=== PATIENT | female | born 1965 | race Caucasian/White ===

== ENCOUNTER → 2016-08-15 | Outpatient (CLI) | payer BC | LOC: FIMAGING 09:58 | PROVIDERS: ATTEND Physician Assistant | DX: R10.11 Right upper quadrant pain (principal) | CPT/HCPCS: A9537 ==

== ENCOUNTER → 2017-02-05 | Outpatient (CLI) | payer BC | LOC: FIMAGING 08:31 | PROVIDERS: ATTEND Surgery | DX: Z12.31 Encounter for screening mammogram for malignant neoplasm of breast (principal) | CPT/HCPCS: G0202 ==

== ENCOUNTER 2017-02-11 11:38 | Emergency (ER) | payer BC ==
[2017-02-11 11:46] VITALS: RESP 16; TEMP 98.8
--- NOTE | 2017-02-11 12:01 | CPEKG ---
Heart Rate: 64 RR Interval: 938 P-R Interval: 168 QRSD Interval: 92 QT Interval: 416 QTC Interval: 430 P Atkinson: 43 QRS Atkinson: 51 T Wave Atkinson: 39 EKG Severity - NORMAL ECG - EKG Impression: SINUS RHYTHM EKG Impression: NS IVCD Electronically Signed By: Yoselin Thibodeaux 13-Feb-2017 21:23:37
[2017-02-11 12:24] LABS: % IMMATURE GRANULYOCYTES 0.2 % (0.0-1.1); ABSOLUTE IMMATURE GRANULOCYTES 0.01 10^3/uL (0.00-0.10); ADD DIFF? NO; ADD MORPH? NO; ADD SCAN? NO; ATYPICAL LYMPHOCYTE FLAG 20 (0-99); FRAGMENT RBC FLAG 0 (0-99); HEMATOCRIT 41.4 % (38.0-47.0); HEMOGLOBIN 13.7 g/dL (12.6-16.3); LEFT SHIFT FLG 0 (0-99); LIPEMIA HEMOLYSIS FLAG 80 (0-99); MEAN CELL HEMOGLOBIN CONCENTR. 33.1 g/dL (32.4-36.7); MEAN CELL VOLUME 93.7 fL (81.5-99.8); MEAN PLATELET VOLUME 10.2 fL (8.7-11.7); PLATELET CLUMPS FLAG 10 (0-99); PLATELET COUNT 223 10^3/uL (150-400); RED BLOOD CELL COUNT 4.42 10^6/uL (4.18-5.33); RED CELL DISTRIBUTION WIDTH 13.4 % (11.5-15.2)
--- NOTE | 2017-02-11 12:32 | EDPHY ---
H & P Stated Complaint: L chest pain x 3 days Time Seen by Provider: 02/11/17 12:24 HPI/ROS: CHIEF COMPLAINT: Chest pain. HISTORY OF PRESENT ILLNESS: This patient is a 51 year old female complaining of left-sided chest pain onset three days ago. Her discomfort has been constant since onset, and is occasionally worse with inspiration or with left arm raise. It is increased when she is supine. She endorses left-sided muscle aches in her neck and shoulder. She initially suspected it may be related to heartburn. Ramone, five days ago, she felt she was catching a cold and had a sore throat and productive cough with yellow mucous. She has a history of anxiety and panic attacks, but her current symptoms do not feel similar to her those associated with her anxiety. She denies fever, urinary complaints, nausea, vomiting, or diarrhea. No history of hypertension, diabetes, or hyperlipidemia. REVIEW OF SYSTEMS: A 10 point review of systems was performed and is negative with the exception of the elements mentioned in the history of present illness. - Personal History LMP (Females 10-55): Now Current Tetanus Diphtheria and Acellular Pertussis (TDAP): Yes - Medical/Surgical History PMH: Anxiety, hypothyroid, sleep apnea. Other PMH: thyroid. sleep apnea. anxiety - Social History Smoking Status: Current every day smoker Additional Social History: Quit smoking 15 years ago, started again 6 months ago. Rare alcohol use. No illicit drug use. . Lives in [place]. - Physical Exam Exam: General Appearance: Alert, no distress Eyes: Pupils equal and round, no conjunctival pallor or injection ENT, Mouth: Mucous membranes moist Neck: Normal inspection Respiratory: Left-sided chest wall tenderness. Lungs are clear to auscultation Cardiovascular: Regular rate and rhythm Gastrointestinal: Abdomen is soft and non- tender Neurological: A&O, nonfocal, normal gait Skin: Warm and dry, no rash Extremities: Nontender, no pedal edema Psychiatric: Mood and affect normal Constitutional: Initial Vital Signs Temperature (C) 37.1 C 02/11/17 11:40 Heart Rate 71 02/11/17 11:40 Respiratory Rate 16 02/11/17 11:40 Blood Pressure 113/63 02/11/17 11:40 O2 Sat (%) 97 02/11/17 11:40 O2 Delivery Mode Room Air Allergies/Adverse Reactions: No Known Allergies Allergy (Verified 02/11/17 11:41) Home Medications: Medication Instructions Recorded Levothyroxine [Synthroid 125 mcg 125 mcg PO DAILY06 09/22/12 (RX)] celeXA 10 MG 02/11/17 Medical Decision Making - Diagnostics EKG Interpretation: EKG interpreted by me reveals normal sinus rhythm, rate 64, no ST/T changes. Interpretation: normal EKG Imaging Results: Imaging Impressions Chest X-Ray 02/11/17 12:01 Impression: Mild peribronchial thickening that could be related to bronchitis or minimal fluid overload. Imaging: I viewed and interpreted images myself ED Course/Re-evaluation: This patient presents with atypical chest pain. After careful consideration and evaluation, I find no evidence of acute coronary syndrome. The patient has no risk factors for coronary disease, normal EKG and normal studies. In addition, I feel that I can safely exclude pulmonary embolism, with normal vital signs, normal oxygen saturation and normal D-dimer. In addition there is no evidence of pneumothorax, pneumonia, aortic dissection. Most likely musculoskeletal etiology for pain, especially given upper respiratory tract infection. - Data Points Laboratory Results: Laboratory Results 02/11/17 12:11 02/11/17 12:11 02/11/17 02/11/17 02/11/17 12:11 12:11 12:11 WBC 6.01 10^3/uL 10^3/uL (3.80-9.50) RBC 4.42 10^6/uL 10^6/uL (4.18-5.33) Hgb 13.7 g/dL g/dL (12.6-16.3) Hct 41.4 % % (38.0-47.0) MCV 93.7 fL fL (81.5-99.8) MCH 31.0 pg pg (27.9-34.1) MCHC 33.1 g/dL g/dL (32.4-36.7) RDW 13.4 % % (11.5-15.2) Plt Count 223 10^3/uL 10^3/uL (150-400) MPV 10.2 fL fL (8.7-11.7) Neut % (Auto) 60.6 % % (39.3-74.2) Lymph % (Auto) 27.1 % % (15.0-45.0) [place] % (Auto) 6.3 % % (4.5-13.0) Eos % (Auto) 5.0 % % (0.6-7.6) Baso % (Auto) 0.8 % % (0.3-1.7) Nucleat RBC Rel Count 0.0 % % (0.0-0.2) Absolute Neuts (auto) 3.64 10^3/uL 10^3/uL (1.70-6.50) Absolute Lymphs (auto) 1.63 10^3/uL 10^3/uL (1.00-3.00) Absolute Monos (auto) 0.38 10^3/uL 10^3/uL (0.30-0.80) Absolute Eos (auto) 0.30 10^3/uL 10^3/uL (0.03-0.40) Absolute Basos (auto) 0.05 10^3/uL 10^3/uL (0.02-0.10) Absolute Nucleated RBC 0.00 10^3/uL 10^3/uL (0-0.01) Immature Gran % 0.2 % % (0.0-1.1) Immature Gran # 0.01 10^3/uL 10^3/uL (0.00-0.10) D-Dimer 0.45 ug/mLFEU ug/mLFEU (0.00-0.50) Sodium 142 mEq/L mEq/L (134-144) Potassium 4.1 mEq/L mEq/L (3.5-5.2) Chloride 109 mEq/L mEq/L (97-110) Carbon Dioxide 21 mEq/l L mEq/l (22-31) Anion Gap 12 mEq/L mEq/L (8-16) BUN 14 mg/dL mg/dL (7-23) Creatinine 0.7 mg/dL mg/dL (0.6-1.0) Estimated GFR > 60 Glucose 95 mg/dL mg/dL (70-100) Calcium 9.6 mg/dL mg/dL (8.5-10.4) Troponin I < 0.012 ng/mL ng/mL (0.000-0.034) Medications Given: Discontinued Medications Ketorolac Tromethamine (Toradol) 15 mg IVP EDNOW ONE Stop: 02/11/17 13:02 Last Admin: 02/11/17 13:09 Dose: 15 mg Departure - Departure Disposition: Home, Routine, Self-Care Clinical Impression: Chest pain Qualifiers: Chest pain type: other chest pain Qualified Code(s): R07.89 - Other chest pain Condition: Good Instructions: Chest Pain (ED) Additional Instructions: 1. Follow up with your primary care provider for further evaluation of your cardiac concerns. 2. You may take 600mg Ibuprofen every 6 hours or 650mg Tylenol every 6 hours as needed for pain. If pain is severe, you may alternate these medications, one every three hours. 3. Return to the Emergency Department for fever, chest pain, shortness of breath , increasing pain or other worsening of condition. Referrals: NONE *PRIMARY CARE P,. [Primary Care Provider] - As per Instructions Hedy Son MD [Medical Doctor] - As per Instructions Report Scribed for: Leigha Shields Report Scribed by: Roya Duarte Date of Report: 02/11/17 Time of Report: 12:27 Physician Review and Approval Statement: 02/11/17 12:27 Portions of this note were transcribed by a chief medical technologist. I personally performed a history, physical exam, medical decision making, and confirmed accuracy of information the transcribed note.
[2017-02-11 12:45] LABS: ANION GAP 12 mEq/L (8-16); CALCIUM 9.6 mg/dL (8.5-10.4); CARBON DIOXIDE 21 mEq/l (22-31); CHLORIDE 109 mEq/L (97-110); CREATININE 0.7 mg/dL (0.6-1.0); GLOMERULAR FILTRATION RATE > 60; GLUCOSE 95 mg/dL (70-100); POTASSIUM 4.1 mEq/L (3.5-5.2); SODIUM 142 mEq/L (134-144)
[2017-02-11 12:52] LABS: TROPONIN I < 0.012 ng/mL (0.000-0.034)
[2017-02-11] MEDS ORDERED: KETOROLAC 15 MG/1 ML SDV IVP ONE (13:01)
[2017-02-11 13:09] VITALS: BP 105/63; PULSE 65; O2SAT 94
== END 2017-02-11 13:14 | disposition home or self-care (01) ==
DX: R07.89 Other chest pain (principal); F17.200 Nicotine dependence, unspecified, uncomplicated
CPT/HCPCS: 96374; J1885

== ENCOUNTER → 2018-02-09 | Outpatient (CLI) | payer BC | LOC: FIMAGING 14:55 | PROVIDERS: ATTEND Surgery | DX: Z12.31 Encounter for screening mammogram for malignant neoplasm of breast (principal) ==